=== PATIENT | female | born 1980 | race Hispanic/Latino ===

== ENCOUNTER 2021-01-01 05:52 | Day surgery (SDC) | payer BC ==
[2021-01-01] VITALS (7 sets, daily range): BP systolic 80–95; BP diastolic 36–54
[~2021-01-01 05:52] MED LIST: FAMO20TA8 PO; FOLI1 PO; FURO20TA4 PO; IRON PO; PNV1TABL17 PO; SPIR50TA5 PO
[2021-01-01] MEDS ORDERED: 0.9%NACL 1000ML 1,000 ML IV ONE (06:20)
[2021-01-01] MEDS ORDERED: PROPOFOL 10 MG/ML 20ML VIAL IV ONE (07:13)
[2021-01-01] MEDS ORDERED: LIDOCAINE HCL 1% 20 ML VIAL ONE (07:13)
[2021-01-01] MEDS ORDERED: PHENYLEPHRINE HCL 10 MG/ML 1ML VIAL IV ONE (07:20)
== END 2021-01-01 08:00 | disposition home or self-care (01) ==
LOC: ENDO 05:52 → DAH 05:52 → ENDO 08:00
PROVIDERS: ATTEND Internal Medicine Gastroenterology
DX: K74.60 Unspecified cirrhosis of liver (principal); Z20.822 Contact with and (suspected) exposure to COVID-19; K29.70 Gastritis, unspecified, without bleeding; D52.9 Folate deficiency anemia, unspecified; K80.20 Calculus of gallbladder without cholecystitis without obstruction; K57.30 Diverticulosis of large intestine without perforation or abscess without bleeding; Z86.010 Personal history of colon polyps; Z98.84 Bariatric surgery status; Z98.0 Intestinal bypass and anastomosis status
CPT/HCPCS: 43239; 87635; A4215; A4221; A4222; A4223; A4606; A4620; A4663; C9803; J2370; J2704; J7030